=== PATIENT | male | born 1980 | race Caucasian/White ===

== ENCOUNTER 2018-06-12 16:36 | Emergency (ER) | payer MEDICAID, OTHER ==
[~2018-06-12] VITALS: Ht 177.8 cm; Wt 100.0 kg
[2018-06-12 16:57] VITALS: BP 136/100
[2018-06-12] MEDS ORDERED: HYDR-4009 PO (17:03)
== END 2018-06-12 18:51 | disposition left against medical advice (07) ==
LOC: ER 17:45
DX: Z53.21 Procedure and treatment not carried out due to patient leaving prior to being seen by health care provider (principal)

== ENCOUNTER 2018-10-28 12:03 | Emergency (ER) | payer MEDICAID ==
[~2018-10-28 12:03] MED LIST: HYDR-4009 PO
== END 2018-10-28 14:33 | disposition left against medical advice (07) ==
LOC: ER 12:03
DX: Z53.21 Procedure and treatment not carried out due to patient leaving prior to being seen by health care provider (principal); Z88.8 Allergy status to other drugs, medicaments and biological substances